=== PATIENT | female | born 2000 | race Hispanic/Latino ===

== ENCOUNTER 2025-03-25 09:19 | Emergency (ER) | payer OTHER ==
[~2025-03-25] VITALS: Ht 149.9 cm; Wt 59.4 kg
[2025-03-25] MEDS ORDERED: ACET-897 PO (09:43)
[2025-03-25 12:32] LABS: BASO # 0.0 10^3/uL (0.0-0.2); BASO % 0.3 % (0.0-1.0); EOS # 0.1 10^3/uL (0.0-0.5); EOS % 1.5 % (0.0-3.0); LYMPH # 2.7 10^3/uL (1.5-5.0); LYMPH % 30.5 % (24.0-44.0); MONO # 0.9 10^3/uL (0.0-0.8); MONO % 9.6 % (2.0-8.0); NEUTROPHILS # 5.2 10^3/uL (1.5-8.5); NEUTROPHILS % 57.8 % (36.0-66.0); PLATELET COUNT, AUTOMATED 324 10^3/uL (150-450)
[2025-03-25 12:40] LABS: KETONE, URINE AUTO RFX NEGATIVE (NEGATIVE); LEUKOCYTE ESTERASE UR AUTO RFX NEGATIVE (NEGATIVE); MUCUS, URINE RFX SMALL (NEGATIVE); NITRITE, URINE AUTO RFX NEGATIVE (NEGATIVE); RBC, URINE AUTO RFX 1 /HPF (0-3); SQUAM EPITHELIAL CELL UR AURFX 2 /HPF (0-6); WBC, URINE AUTO RFX 0 /HPF (0-3)
[2025-03-25 13:01] LABS: ALT/SGPT 56 U/L (7.0-40); AST/SGOT 37 U/L (<34); CALCIUM LEVEL 9.0 MG/DL (8.5-10.1); CARBON DIOXIDE LEVEL 24 MMOL/L (20-31); CHLORIDE LEVEL 106 MMOL/L (98-107); CREATININE FOR GFR 0.61 MG/DL (0.55-1.30); GLOMERULAR FILTRATION RATE > 90.0 (>60); POTASSIUM SERUM 4.4 MMOL/L (3.5-5.1); SODIUM LEVEL 142 MMOL/L (136-145)
[2025-03-25 13:03] LABS: HCG, SERUM QUALITATIVE NEGATIVE (NEGATIVE)
[2025-03-25] MEDS ORDERED: ISOVUE-370 76% 100 ML VIAL As Ordered ONE (14:10)
[2025-03-25 14:25] LABS: MONO SCRN NEGATIVE (NEGATIVE)
[2025-03-25] MEDS: ACETAMINOPHEN 500 MG TAB PO ONE (14:42)
[2025-03-25] MEDS: LR 1,000 ML IV ONE (14:42)
[2025-03-25] MEDS ORDERED: HOME MED LIST COMPLETE! XX SCH (14:45)
[2025-03-25] MEDS ORDERED: MIRA3350 PO (15:38)
[2025-03-25] MEDS ORDERED: COLA100C5 PO (15:39)
[2025-03-25] MEDS ORDERED: IBUP-1022 PO (15:41)
[2025-03-25 15:55] VITALS: BP 128/80; TEMP 98.5; O2SAT 100
== END 2025-03-25 16:01 | disposition home or self-care (01) ==
LOC: M ED 09:19
DX: N83.202 Unspecified ovarian cyst, left side (principal); R74.01 Elevation of levels of liver transaminase levels; K59.00 Constipation, unspecified; B34.9 Viral infection, unspecified
CPT/HCPCS: 74177; 80048; 80076; 81001; 83690; 84703; 85025; 86308; 87486; 87581; 87633; 87798; 87880; 99284; Q9967